=== PATIENT | female | born 1990 | race African-American/Black ===

== ENCOUNTER 2017-06-29 21:01 | Emergency (ER) | payer MEDICAID ==
[~2017-06-29] VITALS: Ht 172.7 cm; Wt 99.0 kg
[2017-06-29] MEDS ORDERED: TRAMADOL 50MG TABLET PO ONE (22:45)
[2017-06-29 23:30] VITALS: BP 148/95
== END 2017-06-29 23:30 | disposition home or self-care (01) ==
LOC: ER 21:01
DX: K08.89 Other specified disorders of teeth and supporting structures (principal); F17.200 Nicotine dependence, unspecified, uncomplicated; Z98.890 Other specified postprocedural states
CPT/HCPCS: 99283

== ENCOUNTER 2022-08-05 17:42 | Emergency (ER) | payer MEDICAID | END 2022-08-05 18:25 | disposition left against medical advice (07) | LOC: ER 17:42 | DX: Z53.21 Procedure and treatment not carried out due to patient leaving prior to being seen by health care provider (principal) ==

== ENCOUNTER 2022-08-06 23:28 | Emergency (ER) | payer MEDICAID, OTHER ==
[~2022-08-06] VITALS: Ht 172.7 cm; Wt 118.0 kg
[2022-08-06 23:51] VITALS: BP 162/92
== END 2022-08-07 02:19 | disposition left against medical advice (07) ==
LOC: ER 23:28
DX: Z53.21 Procedure and treatment not carried out due to patient leaving prior to being seen by health care provider (principal)
CPT/HCPCS: 81025

== ENCOUNTER 2022-08-28 13:31 | Emergency (ER) | payer OTHER ==
[~2022-08-28] VITALS: Ht 175.3 cm; Wt 120.0 kg
[2022-08-28] MEDS ORDERED: ALBUTEROL 6.7GM HFA INHALER ORI ONE (16:45)
[2022-08-28] MEDS ORDERED: ACETAMINOPHEN 325MG TABLET PO ONE (17:45)
[2022-08-28 18:40] LABS: HEMATOCRIT. 34.1 % (36.0-48.0); HEMOGLOBIN. 10.8 g/dL (12.0-16.0); MEAN CORPUSCULAR HEMOGLOBIN 23.3 pg (28.0-32.0); MEAN CORPUSCULAR VOLUME 74.1 fL (81.0-99.0); MEAN PLATELET VOLUME 8.6 fl (7.4-10.4); PLATELET 311 x1000/uL (130-400); RED BLOOD CELL COUNT 4.61 mill/uL (4.2-5.4); RED CELL DISTRIBUTION WIDTH 17.1 % (11.6-14.6)
[2022-08-28 18:45] LABS: CHLORIDE 102 mEq/L (98-107)
[2022-08-28 19:06] LABS: PLATELET ESTIMATE NORMAL
[2022-08-28] MEDS ORDERED: AM250 MT (20:04)
[2022-08-28] MEDS ORDERED: BENZ150C3 MT (20:06)
[2022-08-28 20:23] VITALS: BP 126/75
== END 2022-08-28 20:26 | disposition home or self-care (01) ==
LOC: ER 13:41
DX: J06.9 Acute upper respiratory infection, unspecified (principal); R06.02 Shortness of breath; I10 Essential (primary) hypertension; Z20.822 Contact with and (suspected) exposure to COVID-19; Z98.890 Other specified postprocedural states
CPT/HCPCS: 36415; 71045; 80053; 81025; 85025; 87070; 87426; 87430; 87804; 94640; 99284; C9803; Z7610

== ENCOUNTER 2023-03-07 23:10 | Emergency (ER) | payer MEDICAID, OTHER ==
[~2023-03-07] VITALS: Ht 172.7 cm; Wt 117.0 kg
[~2023-03-07 23:10] MED LIST: AM250 MT; BENZ150C3 MT
[2023-03-07 23:51] VITALS: BP 143/63
[2023-03-08] MEDS ORDERED: NAPR-681 PO (04:18)
[2023-03-08] MEDS ORDERED: ALBU18HF2 IH (04:18)
[2023-03-08] MEDS ORDERED: D-ME473S50 PO (04:18)
== END 2023-03-08 04:40 | disposition home or self-care (01) ==
LOC: ER 23:10
DX: J20.9 Acute bronchitis, unspecified (principal); D64.9 Anemia, unspecified; I10 Essential (primary) hypertension; Z98.890 Other specified postprocedural states; Z20.822 Contact with and (suspected) exposure to COVID-19
CPT/HCPCS: 71045; 81025; 87426; 87804; 99284; C9803